=== PATIENT | female | born 1950 | race Caucasian/White ===

== ENCOUNTER → 2018-10-31 | Day surgery (SDC) | payer MEDICARE, OTHER ==
[2018-10-22 15:00] LABS: BASOPHILS # (AUTO) 0.1 (0.0-0.1); BASOPHILS % 0.9 % (0.0-1.0); EOSINOPHILS # (AUTO) 0.1 (0.0-0.4); EOSINOPHILS % 1.2 % (0.0-6.0); HEMATOCRIT 34.1 % (34.2-44.1); HEMOGLOBIN 10.2 g/dL (12.0-16.0); LYMPHOCYTES # (AUTO) 2.8 (1.0-3.2); LYMPHOCYTES % 31.6 % (18.0-39.1); MEAN CORPUSCULAR HEMOGLOBIN 23.4 pg (28-32); MEAN CORPUSCULAR HGB CONC 29.9 g/dL (31-35); MEAN CORPUSCULAR VOLUME 78.2 fL (81-99); MONOCYTES # (AUTO) 0.7 (0.2-0.8); MONOCYTES % 7.6 % (4.4-11.3); NEUTROPHILS # (AUTO) 5.2 (2.1-6.9); NEUTROPHILS % 58.2 % (38.7-80.0); PLATELET COUNT 305 x10e3/uL (140-360); RED BLOOD COUNT 4.36 x10e6/uL (3.6-5.1); RED CELL DISTRIBUTION WIDTH 14.5 % (11.7-14.4)
[~2018-10-31] MED LIST: CARDIZEM CD180 MG PO; CENTRUM SILVER1 EAC3 PO; CHLORDIAZEPOXI1 EACH PO; CRESTOR10 MG PO; DIOVAN160 MG PO; FENTANYL CITRATE/PF 100MCG/2 ML INJ ONE; HYDROCHLOROTHIA25 MG PO; LEVOCETIRIZINE D5 MG PO; LORAZEPAM2 MG PO; METAXALONE800 MG PO; MIDAZOLAM HCL 2 MG/2 ML VIAL ONE; NORCO 10-325 T1 EACH PO; PANTOPRAZOLE SO40 MG PO; PAROXETINE HCL20 MG PO; PROPOFOL IV EMULSION 10 MG/ML 20 ML VIAL ONE; PROPOFOL IV EMULSION 10 MG/ML 50 ML VIAL ONE; ZANTAC150 MG PO
[2018-10-31 11:50] VITALS: BP 128/72
== END | disposition home or self-care (01) ==
LOC: OR 08:45
PROVIDERS: ATTEND Internal Medicine
DX: R63.4 Abnormal weight loss (principal); K63.5 Polyp of colon; K31.7 Polyp of stomach and duodenum; K29.70 Gastritis, unspecified, without bleeding; K58.9 Irritable bowel syndrome, unspecified; K64.0 First degree hemorrhoids; K21.9 Gastro-esophageal reflux disease without esophagitis; D64.9 Anemia, unspecified; K76.9 Liver disease, unspecified; J45.909 Unspecified asthma, uncomplicated; G47.33 Obstructive sleep apnea (adult) (pediatric); I10 Essential (primary) hypertension; M41.9 Scoliosis, unspecified; M19.90 Unspecified osteoarthritis, unspecified site; E66.01 Morbid (severe) obesity due to excess calories; I49.1 Atrial premature depolarization; Z88.6 Allergy status to analgesic agent; Z88.1 Allergy status to other antibiotic agents; Z88.0 Allergy status to penicillin; Z88.8 Allergy status to other drugs, medicaments and biological substances; Z01.810 Encounter for preprocedural cardiovascular examination; Z01.812 Encounter for preprocedural laboratory examination; Z68.41 Body mass index [BMI] 40.0-44.9, adult
CPT/HCPCS: 36415; 43239; 45380; 85025; 93005; J2250; J2704 ×2; J3010; 45378

== ENCOUNTER 2024-01-14 15:56 | Emergency (ER) | payer MEDICARE, OTHER ==
[~2024-01-14] VITALS: Ht 165.1 cm; Wt 111.1 kg
[~2024-01-14 15:56] MED LIST changes: -FENTANYL CITRATE/PF 100MCG/2 ML INJ ONE; -MIDAZOLAM HCL 2 MG/2 ML VIAL ONE; -PROPOFOL IV EMULSION 10 MG/ML 20 ML VIAL ONE; -PROPOFOL IV EMULSION 10 MG/ML 50 ML VIAL ONE
[2024-01-14 16:30] VITALS: TEMP 98.4
[2024-01-14] MEDS ORDERED: CLINDAMYCIN HC150 MG PO (18:34)
[2024-01-14 19:10] VITALS: PULSE 86; RESP 16; O2SAT 98
[2024-01-14 19:42] VITALS: BP 158/66; PULSE 86; RESP 16; TEMP 98.4
== END 2024-01-14 19:25 | disposition home or self-care (01) ==
LOC: ER 17:18
DX: S00.01XD Abrasion of scalp, subsequent encounter (principal); R51.9 Headache, unspecified; R42 Dizziness and giddiness; W01.198D Fall on same level from slipping, tripping and stumbling with subsequent striking against other object, subsequent encounter; Y93.01 Activity, walking, marching and hiking; Y92.89 Other specified places as the place of occurrence of the external cause; I10 Essential (primary) hypertension; I48.91 Unspecified atrial fibrillation; E78.5 Hyperlipidemia, unspecified; M19.09 Primary osteoarthritis, other specified site; K21.9 Gastro-esophageal reflux disease without esophagitis; F41.9 Anxiety disorder, unspecified; M54.9 Dorsalgia, unspecified; G89.29 Other chronic pain
CPT/HCPCS: 70450; 72125; 99284